=== PATIENT | female | born 1990 | race Caucasian/White ===

== ENCOUNTER 2016-05-19 23:43 | Emergency (ER) | payer MEDICAID ==
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
== END 2016-05-20 01:04 | disposition disaster alternative care site (69) ==
LOC: GMED 23:43
DX: S77.12XA Crushing injury of left thigh, initial encounter (principal); Z98.890 Other specified postprocedural states; W50.0XXA Accidental hit or strike by another person, initial encounter